=== PATIENT | female | born 1970 | race Caucasian/White ===

== ENCOUNTER 2022-03-04 10:48 | Outpatient (CLI) | payer BC, SELFPAY ==
--- NOTE | 2022-03-04 11:00 | MR_ITS ---
WS: [id number] MRI BRAIN WITHOUT CONTRAST HISTORY: G93.5 - Compression of brain COMPARISON: None available. TECHNIQUE: Diffusion imaging, multiplanar T1, T2 and FLAIR imaging obtained. No evidence for acute infarct or hemorrhage. Cedeño-white matter differentiation is normal. No significant atrophy. There are very few scattered T2 and FLAIR signal hyperintensities. The larges t adjacent to the anterior horn LEFT lateral ventricle. Ventricles and extra-axial spaces are normal. Inferior displacement of the cerebellar tonsils by 8 mm through the foramen magnum. Mild downsloping of the tentorium. The RIGHT cerebellar tonsil is slightly greater distended than the LEFT. No hydroce phalus. Seen on the axial T2 sequence is the syrinx described on the MRI cervical spine in the upper cervical cord. Dural venous sinuses and [place] [facility] [place] demonstrate no abnormality on this unenhanced studies. Paranasal sinuses: Clear. Mastoid air cells: Normal. Calvarium and scalp: Intact. MR/MR head wo con* [id number] IMPRESSION: 1. Chiari I malformation. 2. No hydrocephalus. 3. Very minimal small vessel ischemic changes in the white matter.
--- NOTE | 2022-03-04 11:45 | MR_ITS ---
WS: [id number] MRI CERVICAL SPINE NONCONTRAST HISTORY: M54.2 - Cervicalgia COMPARISON: None available. Technique: Multiplanar, multisequence noncontrast imaging of the cervical spine. Mild straightening of the normal cervical alignment. Moderate degenerative disc space narrowing at C6 -7 and C7-T1. Inferior displacement of the cerebellar tonsils with mild pegging. Tonsils extend 9 mm below the fora men magnum consistent with a Chiari I malformation. No dilatation of the fourth ventricle. There is m ild downsloping of the tentorium. Increased T2 signal in the central cervical cord centered at the C2-3 level extends over length of 1. 5 cm. C2-C3: Normal. C3-C4: Very minimal osteophytic ridging. No stenosis. C4-C5: Small LEFT foraminal osteophyte causing mild LEFT foraminal narrowing and encroachment upon th e C5 nerve root. No central stenosis. C5-C6: Large RIGHT paracentral and proximal foraminal disc osteophyte. Disc protrusion extends just s lightly cephalad and caudad to the disc space. Deformity and displacement of the RIGHT lateral thecal sac. There is a smaller disc osteophyte complex on the LEFT. Mild facet joint arthritis. Additional osteophytic ridging around the vertebral bodies. There is at least moderate central stenosis with mod erate to severe foraminal stenosis. C6-C7: Diffuse osteophytic ridging and annular disc bulging with more focal bilateral disc osteophyte complexes, RIGHT greater than LEFT. There is significant encroachment and narrowing of the RIGHT for amen and posterior displacement of the C7 nerve root. Moderate LEFT foraminal narrowing. Moderate neena tral stenosis with a central disc protrusion. C7-T1: Diffuse osteophytic ridging and annular disc bulging. Disc osteophyte complexes extend into th e foramina. Mild central and bilateral foraminal stenosis. Paraspinal soft tissue are normal. MR/MR cervical spin wo con* [id number] IMPRESSION: 1. 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 2. Large RIGHT paracentral and proximal foraminal disc osteophyte at C5-6. Sig nificant encroachment upon the RIGHT C6 nerve root. Moderate central with moder ate to severe bilateral foraminal stenosis, RIGHT greater than LEFT. 3. Moderate central stenosis at C5-6 with moderate to severe bilateral foramin al stenosis. 4. Moderate central stenosis at C6-7 with moderate bilateral foraminal stenosi s, more significant encroachment and displacement of the RIGHT C7 nerve root. C entral disc protrusion also at C6-7. 5. Very small LEFT foraminal osteophyte at C4-5. 6. Mild central and bilateral foraminal stenosis at C6-7 due to disc osteophyt e disease. 7. Chiari 1 malformation. 8. 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
== END 2022-03-04 10:49 | disposition home or self-care (01) ==
LOC: RAD 10:49
PROVIDERS: Visit Provider Specialist
DX: M54.2 Cervicalgia (principal); G93.5 Compression of brain; M48.02 Spinal stenosis, cervical region; M48.03 Spinal stenosis, cervicothoracic region
CPT/HCPCS: 70551; 72141

== ENCOUNTER 2022-03-13 20:00 | Outpatient (CLI) | payer BC, SELFPAY | END 2022-03-13 20:01 | disposition home or self-care (01) | LOC: SLEEP 03-14 05:43 | PROVIDERS: Visit Provider Specialist | DX: G47.33 Obstructive sleep apnea (adult) (pediatric) (principal) | CPT/HCPCS: 95810 ==

== ENCOUNTER 2025-03-01 20:00 | Outpatient (CLI) | payer BC, SELFPAY | END 2025-03-01 20:01 | disposition home or self-care (01) | LOC: SLEEP 03-02 02:08 | PROVIDERS: Visit Provider Specialist | DX: G47.33 Obstructive sleep apnea (adult) (pediatric) (principal); G43.109 Migraine with aura, not intractable, without status migrainosus; R56.9 Unspecified convulsions | CPT/HCPCS: 95811 ==